=== PATIENT | female | born 1950 | race Caucasian/White ===

== ENCOUNTER 2022-03-11 13:26 | Outpatient (CLI) | payer MEDICARE, SELFPAY ==
--- NOTE | 2022-03-11 13:40 | CRLHL7_ITS ---
For Patients: As a result of the Century Cures Act, medical imaging exams and procedure reports are released immediately into your electronic medical record. You may view this report before your referring provider. If you have questions, please contact your health care provider. BILATERAL SCREENING MAMMOGRAM WITH COMPUTER-AIDED DETECTION TECHNIQUE: CC and MLO views were obtained. These mammographic images have been obtained using full-field digital technique. These mammographic images were interpreted with the benefit of computer-aided detection. COMPARISON FILM: 10/31/20; 07/20/19; 11/03/17 FINDINGS: The breasts are extremely dense, which lowers the sensitivity of mammography IMPRESSION: There is no radiographic evidence for malignancy. ASSESSMENT: BI-RADS Category 1: Negative RECOMMENDATION: Routine screening mammogram in 1 year. A lay language report of this examination will be provided to the patient. Reynaldo Fuchs M.D. Diagnostic/Musculoskeletal Radiologist [email or web address] Transcribed: 2:44 p.m. PT/Dictated by: Reynaldo Fuchs MD @ 03/12/2022 9:52:00 AM (Electronically Signed)
== END 2022-03-11 13:27 | disposition home or self-care (01) ==
LOC: MAMMO 13:31
PROVIDERS: PCP Family Medicine; Visit Provider Family Medicine
DX: Z12.31 Encounter for screening mammogram for malignant neoplasm of breast (principal); R92.2 Inconclusive mammogram
CPT/HCPCS: 77063; 77067

== ENCOUNTER 2022-04-08 07:23 | Outpatient (CLI) | payer MEDICARE, SELFPAY ==
[2022-04-08 09:46] LABS: Albumin* 4.5 g/dL (3.3-5.0); Chloride* 100 mmol/L (96-114); Potassium* 4.5 mmol/L (3.6-5.1); Sodium* 137 mmol/L (135-149)
[2022-04-08 09:48] LABS: Creatinine* 0.6 mg/dL (0.5-1.5); Estimated Glomerular Filt Rate 97 ml/min
[2022-04-08 09:49] LABS: Alanine Aminotransferase* 14 U/L (4-35); Alkaline Phosphatase* 104 U/L (40-150); Aspartate Amino Transferase* 20 U/L (12-35); Bilirubin Total* 0.6 mg/dL (0.1-1.5); Blood Urea Nitrogen* 9 mg/dL (7-30); Carbon Dioxide* 29 mmol/L (20-32); Glucose* 181 mg/dL (60-115); Total Protein* 7.1 g/dL (6.0-8.3)
[2022-04-08 09:50] LABS: Calcium* 9.7 mg/dL (8.4-10.6)
[2022-04-08 10:01] LABS: Creatinine Urine 83.9 mg/dL
[2022-04-08 10:05] LABS: Microalbumin Creatinine Ratio 10 mg/g (0-30); Microalbumin Urine < 1 mg/dL
== END 2022-04-08 07:24 | disposition home or self-care (01) ==
LOC: NFLDREF 07:23
PROVIDERS: PCP Family Medicine; Visit Provider Family Medicine
DX: Z00.00 Encounter for general adult medical examination without abnormal findings (principal); E11.9 Type 2 diabetes mellitus without complications; E78.5 Hyperlipidemia, unspecified; E55.9 Vitamin D deficiency, unspecified
CPT/HCPCS: 80053; 82043; 82570

== ENCOUNTER 2022-04-24 13:11 | Outpatient (CLI) | payer MEDICARE, SELFPAY ==
--- NOTE | 2022-04-24 13:30 | XR_ITS ---
Patient: JUAN JOSE HOPKINS Facility:?[facility] Patient ID:?[id number] Site Patient ID:?[id number]. Site :?[id number] Study:?DEXA-Spine DEXA SPINE/HIPS-04/25/2022 8:06:40 AM Ordering Physician:SHIKHA Final Report: DXA BONE MINERAL DENSITY STUDY Current height (in): 66.0. Weight (lb): 167.0. Menopause age: 47. Ethnicity: White. Reason for exam: Screening. 1. Have you had a previous hip or vertebral fracture? No. 2. Have you had any fractures during your adult life which did not result from significant trauma (e.g., auto accident)? No. 3. Did either of your parents have a hip fracture? No. 4. Do you smoke? No. 5. Have you ever taken Glucocorticoids? No. 6. Do you have rheumatoid arthritis? No. 7. Do you have secondary osteoporosis? No. 8. Do you drink 3 or more alcoholic drinks per day? No. 9. Are you being treated for osteoporosis? No. 10. Have you ever taken any of the following medications: Actonel, Evista, Fosamax, Miacalcin, Reclast, Boniva, Forteo, HRT (i.e. estrogen/hormone therapy), Protelos, Prolia, Vitamin D, Calcium, other ? please specify. ANSWER: Yes, vitamin D. 11. Do you have any of the following medical conditions: Anorexia or bulimia, asthma or emphysema, end stage renal disease, hyperparathyroidism, any seizure disorders, cancer, inflammatory bowel diseases, hysterectomy, other ? please specify. ANSWER: No. 12. What was your maximum height (inches)? 66. 13. Do you perform weight bearing exercise regularly? No. 14. Do you regularly consume dairy products? No. 15. Do you drink caffeinated beverages? Yes. If female: 16. At what age did your period start? 16. 17. Are you premenopausal? No. 18. How many full term pregnancies have you had? 4. 19. Have you ever missed your period for more than 6 months in a row (not including or menopause)? No. TECHNIQUE: Bone mineral density study was performed using the VISEO. FINDINGS: The results of the study expressed as bone mineral density (BMD) are as follows: Lumbar spine L1 to L4: BMD: 0.994 g/cm2. T-score: -0.5. Z-score: 1.7. Neck Left: BMD: 0.786 g/cm2. T-score: -0.6. Z-score: 1.3. Right: BMD: 0.795 g/cm2. T-score: -0.5. Z-score: 1.4. Total Left: BMD: 0.945 g/cm2. T-score: 0.0. Z-score: 1.6. Right: BMD: 0.957 g/cm2. T-score: 0.1. Z-score: 1.7. IMPRESSION: Normal bone density. *Comparison exams done prior to 12/2019 were performed on different unit, [employer]. COMPARISON: Compared with scan of 04/11/2013, the bone mineral density has decreased by 6.1 percent at the spine and decreased by 1.1 percent at the hip. Paul Sims M.D. Diagnostic Radiologist [email or web address] DSM/lesliew: D& Transcribed: 9:18 a.m. DW/Dictated by: Paul Sims MD @ 04/25/2022 8:19:00 AM Signed by:?Paul Sims MD @04/25/2022 10:32:31 AM (Electronic Signature)
== END 2022-04-24 13:12 | disposition home or self-care (01) ==
LOC: RAD 13:11
PROVIDERS: PCP Family Medicine; Visit Provider Family Medicine
DX: Z13.820 Encounter for screening for osteoporosis (principal); Z78.0 Asymptomatic menopausal state
CPT/HCPCS: 77080

== ENCOUNTER 2022-10-06 07:32 | Outpatient (CLI) | payer MEDICARE, SELFPAY | END 2022-10-06 07:33 | disposition home or self-care (01) | LOC: NFLDREF 11:40 | PROVIDERS: PCP Family Medicine; Referring Provider Family Medicine; Visit Provider Family Medicine | DX: E53.8 Deficiency of other specified B group vitamins (principal); E78.5 Hyperlipidemia, unspecified; E11.9 Type 2 diabetes mellitus without complications; E55.9 Vitamin D deficiency, unspecified | CPT/HCPCS: 80053; 80061; 82306; 82607 ==

== ENCOUNTER 2023-04-27 08:41 | Outpatient (CLI) | payer MEDICARE, SELFPAY | END 2023-04-27 08:42 | disposition home or self-care (01) | LOC: NFLDREF 04-30 06:54 | PROVIDERS: PCP Family Medicine; Referring Provider Family Medicine; Visit Provider Family Medicine | DX: Z00.00 Encounter for general adult medical examination without abnormal findings (principal); E11.9 Type 2 diabetes mellitus without complications; E78.5 Hyperlipidemia, unspecified; E53.8 Deficiency of other specified B group vitamins; E55.9 Vitamin D deficiency, unspecified | CPT/HCPCS: 80053; 80061; 82043; 82570 ==

== ENCOUNTER 2023-07-23 13:08 | Outpatient (CLI) | payer MEDICARE, SELFPAY ==
--- OUTSIDE RECORDS SUMMARY | 2023-07-23 13:10 | XMS_ITS | Clinical Summary ---
Author Name Unknown Organization [facility] Address [place], [place] [address] Care Team Providers Care X Ray Equipment Tester Name Role Phone Radha Helton RN Unavailable [phone] Marguerite James MD Primary Care Provider + Allergies No known active allergies Medications Medication Sig Dispensed Refills Start Date End Date Status metFORMIN (GLUCOPHAGE XR) 500 mg Extended-Release tablet 0 12/29/2017 Active rosuvastatin (CRESTOR) 5 mg tablet 0 12/29/2017 Act allen cholecalciferol (VITAMIN D3) 1,000 unit capsule Take 1,000 Units by mouth. 0 Active DUREZOL 0.05 % ophthalmic emulsion 0 12/29/2017 Activ e ketorolac 0.5 % ophthalmic (ACULAR) solution 0 12/29/2017 Active ciclopirox solution (LOPROX) 8 % solutionIndications:O nychomycosis Apply topically to affected area(s) at bedtime. 6.6 mL 10 03/31/2023 Active Active Problems Problem Noted Date Diagnosed Date Other chest pain 03/18/2018 Malignant melanoma of skin of trunk, except scro aurora 05/17/2013 Social History Tobacco Use Types Packs/Day Years Used Date Smoking Tobacco: Never Smokeless Tobacco: Never Alcohol Use Standard Drinks/Week Comments Yes 2 (1 standard drink = 0.6 oz pur e alcohol) Sex and Gender Information Value Date Recorded Sex Assigned at Not on file Gender Identity Not on file Sexual Orientation Not on file Obstetrics History Last Filed Vital Signs Vital Sign Reading Time Taken Comments Blood Pressure 135/84 06/07/2018 10:37 AM WEB COMMUNICATIONS SPECIALIST Pulse 74 06/07/2018 10:37 AM WEB COMMUNICATIONS SPECIALIST Temperature 36.8 ??C (98.2 ??F) 06/07/2018 10:[address] Respiratory Rate 16 06/07/2018 10:37 AM WEB COMMUNICATIONS SPECIALIST Oxygen Saturation 98% 06/07/2018 10:37 AM WEB COMMUNICATIONS SPECIALIST Inhaled Oxygen Concentration - - Weight 76.2 kg (168 lb) 03/18/2018 7:57 AM CDT Height 167.6 cm (5' 6) 03/18/2018 7:57 AM CDT Body Mass Index 27.12 03/18/2018 7:57 AM CDT Plan of Treatment Health Maintenance Due Date Last Done Comments Tdap 1962 Depression screening for age 12+ 1963 Hepatitis C screening for age 18-79 1969 Tetanus booster 1971 Colonoscopy through age 75 1996 Lipids for age 45-75 1996 Mammogram for age 45-75 1996 Zoster (shingles) series for age 50+ (1 of 2) 2001 DEXA/DXA scan for age 65+ 2016 Medicare Wellness for age 65+ 2016 Pneumococcal series for age 65+ (1 of 1 - PCV) 2016 BMI (ht and wt on same day) for age 18+ 03/18/2019 03/18/2018 COVID-19 vaccine series (2022-24 season) 2023 04/17/2022, 11/25/2021, 05/27/2021 Influenza for age 65+ 03/13/2023 Advance Directives Latest Code Status on File Code Status Date Activated Date Inactivated Comments Full Code 05/17/2013 11:50 AM 05/18/2013 2:27 AM Care Teams X Ray Equipment Tester Relationship Specialty Start Date End Date Marguerite James MD [address] [place] [address] PCP - General Family Practice 03/17/18 Radha Helton, VARUN [address] [facility] [address] [place], [place] [id number] Sql Data Architect Registered Nurse 05/17/13
--- OUTSIDE RECORDS SUMMARY | 2023-07-23 13:10 | XMS_ITS | Clinical Summary ---
Author Name Unknown Organization [facility] Address [address] [place] [address] Care Team Providers Care Lighting Technician Name Role Phone Unavailable Primary Care Provider Unavailabl e Source Comments Patient records contain information from all sites at [facility]. For routine questions regarding patient records, call [phone] during business hours, M-F 8:00 AM - 5:00 PM Central Time. Record requests for emergency care only can be directed to [phone] at any time.[facility] Allergies No known active allergies Medications Medication Sig Dispensed Refills Start Date End Date Status cholecalciferol (VITAMIN D3) 1,000 Unit capsule Take 1,000 Units by mouth. 0 Active metFORMIN XR (GLUCOPHAGE-XR) 500 mg 24 hr tablet Take 1,000 mg by mouth daily. Takes 4 tablets, 2 in the AM and 2 in the PM 3 12/29/2017 Active rosuvastatin (CRESTOR) 5 mg tablet daily. 0 12/29/2017 Active CONTOUR NEXT TEST STRIPS strips TEST BLOOD GLUCOSE TWICE DAILY 0 12/21/2018 Active timolol (TIMOPTIC) 0.5 % ophthalmic solution Administer 1 drop into both eyes 2 (two) times a day. 0 05/23/2020 Active brimonidine (ALPHAGAN P) 0.15 % ophthalmic solution Administer 1 drop into both eyes 2 (two) times a day. 0 05/23/2020 Active cyanocobalamin (VITAMIN B12) 1,000 mcg tablet Take 1,000 mcg by mouth every other day. 0 04/01/2020 Active COQ10, UBIQUINOL, ORAL Take 400 mg by mouth. 0 Active Encounters Date Type Department Care Team Description 05/18/2023 8:15 AM RECEIVING CLERK Office Visit Department of Dermatology in [address] [place] [address] Barbi Gibbons M.D. Nevi Multiple (Primary Dx); Keratosis Seborrheic; Melanoma Personal History Discharge Disposition: Home or Self Care from Last 3 Months Social History Tobacco Use Types Packs/Day Years Used Date Smoking Tobacco: Never Smokeless Tobacco: Never Nutrition Answer Date Recorded Nutrition: EVOO Fat Source Unknown 09/17 Nutrition: Servings of Fruits/Vegetables per Day Not on file 09/17/2020 Dental Answer Date Recorded Dental: Regular Dentist Unknown 09/19/19 21 Sex and Gender Information Value Date Recorded Sex Assigned at Not on file Gender Identity Not on file Sexual Orientation Not on file Plan of Treatment Health Maintenance Due Date Last Done Comments Bone Density Scan (Osteoporo sis Screen) 1950 CT Colonography 1950 Cologuard 1950 Colonoscopy 1950 Colorectal Cancer Screening 1950 FIT 1950 Hepatitis C Screening 1950 Mammogram 1950 Fasting Glucose for Diabetes Screening 03/16/2021 03/16/2018 DTaP,Tdap,and Td Vaccines (4 - Td or Tdap) 04/01/2022 04/01/2012, 03/21/2012, 09/13/2010 Depression Screening (Annual PHQ-2) 07/13/2022 Fall Risk Screen (Annual) 07/13/2022 Pneumococcal vaccine (65+ years) Completed 10/14/19 19, 10/08/2017 Zoster Vaccines Completed 03/27/2019, 11/10, 09/27/2015 COVID-19 Vaccine Completed 04/18/2023, 12/2021, 11/25/2021, Additional history exists Influenza Vaccine Completed 04/18/2023, , 05/02/2021, Additional history exists
--- OUTSIDE RECORDS SUMMARY | 2023-07-23 13:10 | XMS_ITS | Encounter Summary ---
Author Name Unknown Organization [facility] Address [address] [place] [address] Care Team Providers Care Vascular Surgery Physician Name Role Phone Unavailable Primary Care Provider Unavailabl e Reason for Referral * Outpatient (Routine) - Closed Specialty Diagnoses / Procedures Referred By Contac t Referred To Contact Dermatology Barbi Gibbons M.D. [address] [place] [address] [facility] Referral ID Status Reason Start Date Expiration Date Visits Re quested Visits Authorized [id number] Closed 10/16/2022 10/15/2025 1 1 Scheduling Instructions Skin check at [facility] in 6 months Reason for Visit * Outpatient (Routine) - Closed Specialty Diagnoses / Procedures Referred By Contac t Referred To Contact Dermatology Barbi Gibbons M.D. [address] [place] [address] [facility] Referral ID Status Reason Start Date Expiration Date Visits Re quested Visits Authorized [id number] Closed 04/10/2022 04/09/2025 1 1 Encounter Details Date Type Department Care Team (Late st Contact Info) Description 10/16/2022 12:45 PM CDT Office Visit Department of Dermatology in [place], [place] [address] [place] [phone] Barbi Gibbons M.D. [address] [place] [address] Nevi Multiple (Primary Dx); Keratosis Seborrheic; Melanoma Personal History Social History Tobacco Use Types Packs/Day Years [...] on file Sexual Orientation Not on file documented as of this encounter Progress Notes * Barbi Gibbons M.D. - 10/16/2022 12:45 PM CDT SUBJECTIVE CHIEF COMPLAINT / REASON FOR VISIT Melanoma recheck HISTORY OF PRESENT ILLNESS Irene Chance is a pleasant 72 y.o. female who presents for melanoma recheck. The patient was last seen by me in Dermatology clinic on 04/10/22. 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 She denies a personal history of non-melanoma skin cancer or family history for melanoma. She uses sunscreen. She denies any new or changing lesions today. She denies any fever, night sweats or unexpected weight loss. MEDICAL HISTORY 1. Upper central back: History of malignant melanoma, Jean-Paul level III, Breslow thickness 0.6 mm, 0 mitoses, 0 ulceration, status post wide local excision with subsequent negative lymph node biopsies done elsewhere in May 2013 2. Negative for non-melanoma skin cancer FAMILY HISTORY No history for melanoma OBJECTIVE PHYSICAL EXAMINATION General: Awake, alert, in no acute distress, and with appropriate affect. Eyes: No scleral injection or icterus. No eyelid abnormalities. Lymph: No lower extremity edema. No lymphadenopathy of head and neck, axilla, no popliteal or inguinal areas. No hepatosplenomegaly. Skin: I have examined the scalp, face, neck, chest, abdomen, back, bilateral upper extremities, andbilateral lower extremities. My nurse (Janette) served as a supervisor unloading for the entirety of the exam. Examination of the upper central back reveals no evidence for recurrence of melanoma. Examination of the face, trunk and extremities reveals multiple benign-appearing nevi, lentigines and seborrheic keratoses. Examination of the left upper cheek reveals a 1.4 x 1.4 cm brown patch with focal areas of slightlydarker pigmentation in the center compatible with lentigo. (5 scouting biopsies taken over 5 year period and al have shown benign solar lentigo) Examination of the right mid cheek reveals a 6 x 8 mm slightly verrucous papule with jagged borderscompatible with seborrheic keratosis. ASSESSMENT / PLAN #1 Upper central back: History of malignant melanoma, Jean-Paul level III, Breslow thickness 0.6 mm, 0 mitoses, 0 ulceration, status post wide local excision with subsequent negative lymph node biopsies done elsewhere in May 2013 A skin cancer screening was performed as described above. No clinical evidence of local recurrence of melanoma today. Due to the history of melanoma, there is an increased risk of additional melanomain the future. Recommended monthly self- skin examinations to evaluate for new, changing, symptomatic, or otherwise worrisome lesions. Signs and symptoms of melanoma and nonmelanoma skin cancer discussed. Photoprotection was recommended. Return to Dermatology in 6-12 months for a full skin exam or immediately if any new or changing lesions are noted. #2 Face, trunk and extremities: Multiple nevi and lentigines The ABCDE criteria for melanoma was reviewed with the patient. None of the patient's nevi reach theclinical threshold for biopsy. I recommend continued sun protection, using sunscreen with SPF 30 atleast, self-skin examinations, and observation. Should any of the patient's nevi change in size, color, texture, or shape or develop symptoms such as itching or bleeding, I recommend an immediate return visit for reassessment. Particularly, we will continue to clinically monitor the lesion(s) involving the left upper cheek noted today. Photographs taken today. Follow up in 6 months for a recheck of the stated lesion(s). #3 Face, trunk and extremities: Seborrheic keratosis The benign nature of the skin lesion(s) was discussed with the patient. No treatment is required. Irecommend continued observation. Should this lesion change in size, color, texture, or shape or develop symptoms such as itching or bleeding, I recommend an immediate return visit for reassessment. PATIENT EDUCATION: Ready to learn. No apparent learning barriers were identified. Learning preferences include listening. Explained diagnosis and treatment plan; patient/guardian of patient expressed understanding of the content. By signing my name below, I, Philip Duffy, attest that this documentation has been prepared under the direction and in the presence of Barbi Gibbons M.D. Electronically Signed: odin Martin. 10/16/2022. 12:49 PM CDT. IBarbi M.D., personally performed the services described in this documentation. All medical record entries made by the scribe were at my direction and in my presence. I have reviewed the chart and discharge instructions (if applicable) and agree that the record reflects my personal performance and is accurate and complete. Barbi Gibbons M.D. documented in this encounter Plan of Treatment Scheduled Referrals Name Type Priority Associated Diagnoses Order Schedule Dermatology office visit (clinic) Outpatient Referral Routine Expected: 04/17/2023 (Approximate), Expires: 01/16/2024 documented as of this encounter Visit Diagnoses Diagnosis Nevi Multiple- Primary Keratosis Seborrheic Melanoma Personal History documented in this encounter
--- OUTSIDE RECORDS SUMMARY | 2023-07-23 13:10 | XMS_ITS | Encounter Summary ---
Author Name Unknown Organization [facility] Address [address] [place] [address] Care Team Providers Care Slate Cutter Operator Name Role Phone Unavailable Primary Care Provider Unavailabl e Encounter Details Date Type Department Care Team (Late st Contact Info) Description 10/16/2022 1:05 PM CDT Ancillary Procedure Department of Dermatology Social History Tobacco Use Types Packs/Day Years [...] on file documented as of this encounter Plan of Treatment Not on file documented as of this encounter Procedures Procedure Name Priority Date/Time Associated Diagnosis Comments DERMATOLOGY IMAGE EXAM Routine 10/16/2022 1:03 PM CDT documented in this encounter Results * Cheek, left 11 13 25 27 37-Dermatology Image Exam (10/16/2022 1:03 PM CDT) 10/16/2022 1:01 PM CDT Narrative [facility] - 10/16/2022 1:03 PM CDT This order has been created and auto-finalized to support the import of images acquired without order. The clinical documentation to support these images can be found on the encounter that produced images. Provider Not In System IMG NON RAD IMAGI NG PROCEDURES [facility] NA documented in this encounter Visit Diagnoses Not on filedocumented in this encounter
--- OUTSIDE RECORDS SUMMARY | 2023-07-23 13:10 | XMS_ITS | Referral Summary ---
Author Name Unknown Organization [facility] Address [address] [place] [address] Care Team Providers Care Inside Sales Assistant Name Role Phone Unavailable Primary Care Provider Unavailabl e Source Comments Patient records contain information from all sites at [facility]. For routine questions regarding patient records, call [phone] during business hours, M-F 8:00 AM - 5:00 PM Central Time. Record requests for emergency care only can be directed to [phone] at any time.[facility] Encounters Date Type Department Care Team Description 05/18/2023 8:15 AM SUPERVISOR PAPER TESTING Office Visit Department of Dermatology in [address] [address] Barbi Gibbons M.D. Nevi Multiple (Primary Dx); Keratosis Seborrheic; Melanoma Personal History Discharge Disposition: Home or Self Care from Last 3 Months Allergies No known active allergies Medications Medication [...] Take 400 mg by mouth. 0 Active Social History Tobacco Use Types Packs/Day Years [...] Orientation Not on file Plan of Treatment Not on file Guarantor Name Account Type Relation to Patient Date of Phone Billing Address Irene Chance Personal/Family Self 1950 [id number] [place] [address]
--- OUTSIDE RECORDS SUMMARY | 2023-07-23 13:10 | XMS_ITS | Encounter Summary ---
Author Name Unknown Organization [facility] Address [address] [place] [address] Care Team Providers Care Splicing Machine Operator Automatic Name Role Phone Unavailable Primary Care Provider Unavailabl e Reason for Visit * Reason Comments Skin Check * Outpatient (Routine) - Closed Specialty Diagnoses / Procedures Referred By Cassandra ren Referred To Contact Dermatology Barbi Gibbons M.D. [address] [place] [phone] [employer]pi [employer] Referral ID Status Reason Start Date Expiration Date Visits Re quested Visits Authorized [id number] Closed 10/16/2022 10/15/2025 1 1 Encounter Details Date Type Department Care Team (Late st Contact Info) Description 05/18/2023 8:15 AM ENTERTAINMENT MANAGER Office Visit Department of Dermatology in [address] [phone] Barbi Gibbons M.D. [address] [place] [phone] Nevi Multiple (Primary Dx); Keratosis Seborrheic; Melanoma Personal History Discharge Disposition: Home or Self Care Social History Tobacco Use Types Packs/Day Years [...] Progress Notes * Barbi Gibbons M.D. - 05/18/2023 8:15 AM CST SUBJECTIVE CHIEF COMPLAINT / REASON FOR VISIT Melanoma recheck HISTORY OF PRESENT ILLNESS Irene Chance is a pleasant 72 y.o. female who presents for a melanoma recheck. The patient was last seen by me in Dermatology clinic on 10/16/22. She has a history of malignant melanoma involving the upper central back, Jean-Paul level III, Breslow thickness 0.6 mm, 0 mitoses, 0 ulceration, status post wide local excision with subsequent negative lymph node biopsies done elsewhere in May 2013.She denies a personal history of non-melanoma skin [...] No lymphadenopathy of head and neck, axilla, popliteal or inguinalareas. No hepatosplenomegaly. Skin: I have examined the scalp, face, neck, chest, abdomen, back, bilateral upper extremities, andbilateral lower extremities. My scribe (Fay) served as a compliance advisor for the entirety of the exam. Examination of the upper central back reveals no evidence for recurrence of melanoma. Examination of the face, trunk and extremities reveals multiple benign-appearing nevi, lentigines and seborrheic keratoses. Examination of the left upper cheek reveals a 1.5 x 1.4 cm brown patch with focal areas of hypopigmentation from previous biopsies and a second island of brown pigmentation just lateral at the 3 o'clock position, likely representing a lentigo vs flat seborrheic keratosis, favor lentigo (five scouting biopsies taken over five year period and all have shown benign solar lentigo). Examination today reveals no suspicious lesions for skin cancer. ASSESSMENT / PLAN #1 Upper central back: History of malignant melanoma, Jean-Paul level III, Breslow thickness 0.6 mm, 0 mitoses, 0 ulceration, status post wide local excision with subsequent negative lymph node biopsies done elsewhere in May 2013, no recurrence A skin cancer screening was performed as described above. No clinical evidence of local recurrence of melanoma today. Due to the history of melanoma, there is an increased risk of additional melanomain the future. Recommended monthly self- skin examinations to evaluate for new, changing, symptomatic, or otherwise worrisome lesions. Signs and symptoms of melanoma and non-melanoma skin cancer discussed. Photoprotection was recommended. Return to Dermatology in 6-12 months for a full skin exam or immediately if any new or changing lesions are noted. #2 Face, trunk and extremities: Multiple nevi and lentigines The ABCDE criteria for melanoma was reviewed with the patient. None of the patient's nevi reach theclinical threshold for biopsy. I recommend continued sun protection, self-skin examinations, and observation. Should any of the patient's nevi change in size, color, texture, or shape or develop symptoms such as itching or bleeding, I recommend an immediate return visit for reassessment. Particularly, we will continue to clinically monitor the lesion(s) involving the left upper cheek. Photographstaken previously. Follow up in 6 months for a [...] the content. By signing my name below, Fay Trent, attest that this documentation has been prepared underthe direction and in the presence of Barbi Gibbons M.D. Electronically Signed: odin Naik. 05/18/2023. 8:16 AM ENTERTAINMENT MANAGER. Barbi Trent M.D., personally performed the services described in this documentation. All medical record entries made by the scribe were at my direction and in my presence. I have reviewed the chart and discharge instructions (if applicable) and agree that the record reflects my personal performance and is accurate and complete. Barbi Gibbons M.D. Scribed for Barbi Gibbons M.D. by Fay Meneses on 05/18/2023, 8:22 AM ENTERTAINMENT MANAGER. RTAINMENT MANAGER documented in this encounter Plan of Treatment Not on file documented as of this encounter Visit Diagnoses Diagnosis Nevi Multiple- Primary Keratosis Seborrheic Melanoma Personal History documented in this encounter
--- OUTSIDE RECORDS SUMMARY | 2023-07-23 13:10 | XMS_ITS ---
Author Name Unknown Organization [facility] Address [address] [place] [address] Care Team Providers Care Asset Protection Assistant Name Role Phone Unavailable Unavailable Unavailable Surgery Details Not on file Complications Check Surgery Details section. Procedure Estimated Blood Loss Check Surgery Details section. Procedure Findings Check Surgery Details section. Procedure Specimens Taken Check Surgery Details section.
--- OUTSIDE RECORDS SUMMARY | 2023-07-23 13:10 | XMS_ITS | Encounter Summary ---
Author Name Unknown Organization [facility] Address [address] [place] [id number] Care Team Providers Care First Cook Name Role Phone Unavailable Primary Care Provider Unavailabl e Reason for Visit * Reason Onset Date Comments Pre-visit Intake 10/13/2022 Encounter Details Date Type Department Care Team (Latest Contact Info) Description 10/13/2022 8:00 AM CDT Clinical Communication Virtual Review in [place], [place] [address] [place], [place] [id number] Pre-visit Intake Social History Tobacco Use Types Packs/Day Years [...] on file documented as of this encounter Miscellaneous Notes * Telephone Encounter - Shana Cope - 10/13/2022 8:10 AM CDT PRATIK DONE 10/13 JAR documented in this encounter Plan of Treatment Not on file documented as of this encounter Visit Diagnoses Not on filedocumented in this encounter
--- NOTE | 2023-07-23 13:20 | CRLHL7_ITS ---
For Patients: As a result of the Century Cures Act, medical imaging exams and procedure reports are released immediately into your electronic medical record. You may view this report before your referring provider. If you have questions, please contact your health care provider. BILATERAL SCREENING MAMMOGRAM WITH COMPUTER-AIDED DETECTION TECHNIQUE: CC and MLO views were obtained. These mammographic images have been obtained using full-field digital technique. These mammographic images were interpreted with the benefit of computer-aided detection. COMPARISON FILM: 03/11/22, 10/31/20, 07/20/19. FINDINGS: The breasts are extremely dense, which lowers the sensitivity of mammography IMPRESSION: There is no radiographic evidence for malignancy. ASSESSMENT: BI-RADS Category 2: Benign RECOMMENDATION: Routine screening mammogram in 1 year. A lay language report of this examination will be provided to the patient. Paul Sims M.D. Diagnostic Radiologist [email or web address] Transcribed: 4:23 p.[email or web address] [email or web address]/Dictated by: Paul Sims MD @ 07/29/2023 1:09:00 PM (Electronically Signed)
== END 2023-07-23 13:09 | disposition home or self-care (01) ==
LOC: MAMMO 13:08
PROVIDERS: PCP Family Medicine; Visit Provider Family Medicine
DX: Z12.31 Encounter for screening mammogram for malignant neoplasm of breast (principal); R92.2 Inconclusive mammogram
CPT/HCPCS: 77067

== ENCOUNTER 2024-03-09 08:58 | Outpatient (RCR) | payer MEDICARE, SELFPAY ==
--- NOTE | 2024-03-09 15:43 | PT.OPE ---
PT [facility] Outpatient Eval PT [facility] Outpatient Eval Start: 03/09/24 07:17 Freq: Status: Active Protocol: Document 03/09/24 15:41 CJT (Rec: 03/09/24 15:42 CJT [email or web address]) E-signed By Basilio Harman PT Physical Therapy Outpatient Evaluation Insurance Information Recert Due Date 06/07/24 Insurance Name Medicare B Medical Diagnosis Vertigo Treating Diagnosis BPPV, L ear Referring Pako Navarro Subjective Preferred Name Irene Mosquera Pt presents with complaints of dizziness. Looking up and down, reaching with her arms seems to trigger dizziness. Dizziness last approx 10-15 seconds with some residual symptoms noted. Symptoms started 1 week ago. Had been given printout of instructions for R Tatiana. Pt describes onset of dizziness in each phase of the maneuver. Has been doing the R Tatiana since Thursday. Pt denies LOB and falls. As long as she doesn't look down while walking she is fine. Pt sleeps on either side at night. Has been sleeping on L last few nights and this seems to help. Has had some nausea but denies vomiting. This is pts first experience with vertigo. Pt also notes that she was on a plane about 10 days ago and has had some fullness in her R ear since. Date of Last Physician Visit 03/04/24 Current Work Status Retired Precautions Treatment Precautions/Contraindications Active Problems (Updated 04/29 @ 07:45 by Marguerite James MD) Vitritis (Chronic) H43.89 - Other disorders of vitreous body (ICD-10) Low vitamin B12 level ( Resolved 2019) E53.8 - Deficiency of other specified B group vitamins ( ICD-10) History of bone density study (Chronic ~04/2022) normal bone density Z92.89 - Personal history of other medical treatment (ICD- 10) Chronic leukopenia (Chronic ~ 2018) peripheral smear March 2021: significance of leukopenia doubtful Normal morphology Borderline leukopenia, borderline lymphopenia, borderline microcytic anemia D72.819 - Decreased white blood cell count, unspecified (ICD-10) 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) H35.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 - Cystoid macular degeneration, right eye (ICD- 10) History of herpes zoster keratoconjunctivitis (Acute 2012) R eye Z86.69 - Personal history of other diseases of the nervous system and sense organs (ICD- 10) Malignant melanoma (Chronic 2012) see it application support analyst Dr Gibbons yearly C43.9 - Malignant melanoma of skin, unspecified (ICD-10) Type 2 diabetes mellitus ( Chronic 2015) E11.9 - Type 2 diabetes mellitus without complications (ICD-10) Vitamin D deficiency (Chronic 05/13/13) E55.9 - Vitamin D deficiency, unspecified (ICD-10) Dyslipidemia (Acute) E78.5 - Hyperlipidemia, unspecified (ICD-10) Medical History (Updated 04/29 @ 07:45 by Marguerite James MD) Health care directive on file Z78.9 - Other specified health status (ICD-10) History of bone density study (~04/2022) Z92.89 - Personal history of other medical treatment (ICD- 10) Chronic leukopenia (~2018) D72.819 - Decreased white blood cell count, unspecified (ICD-10) Vitritis H43.89 - Other disorders of vitreous body (ICD-10) Type 2 diabetes mellitus (2015 ) E11.9 - Type 2 diabetes mellitus without complications (ICD-10) Tubular adenoma of colon (2010 ) D12.6 - Benign neoplasm of colon, unspecified (ICD-10) No retinopathy on exam () Z01.00 - Encounter for examination of eyes and vision without abnormal findings ( ICD-10) Malignant melanoma (2012) C43.9 - Malignant melanoma of skin, unspecified (ICD-10) Low vitamin B12 level (2019) E53.8 - Deficiency of other specified B group vitamins ( ICD-10) History of herpes zoster keratoconjunctivitis (2012) Z86.69 - Personal history of other diseases of the nervous system and sense organs (ICD- 10) Cystoid macular edema of right eye (03/2017) H35.351 - Cystoid macular degeneration, right eye (ICD- 10) Therapy Limitations/Systems Review Not Limited Objective Other/Pertinent Objective Cervical ROM Extension - 46 Flexion - 37 R/L Sidebend - 30/30 R/L Rotation - 68/75 Oculomotor Testing Gaze Stabilization: negative Smooth Pursuits: negative Saccades: negative Convergence: negative Head Shake: negative Head Thrust: negative VOR: negative VOR Cancelation: negative Positional Testing -R Lamar-Hallpike: negative x 2 -L Lamar-Hallpike: positive for minimal dizziness; nystagmus lasting approx 20-25 seconds -R Roll: DNT -L Roll: DNT Modified Romberg -Eyes open, firm surface: normal sway -Eyes closed, firm surface: normal sway -Eyes open, foam surface: normal sway -Eyes closed, foam surface: excessive sway and LOB x 1 Assessment Assessment/Impression Irene is a very pleasant 73 year old female who presents to our clinic for evaluation and treatment of dizziness. Based on the above history and exam, her symptoms are most suspicious and consistent with a peripheral process, with highest suspicion for BPPV. Other etiologies for dizziness were considered, but felt to be less likely at this time. Each of their episodes of dizziness are distinctly triggered by changes in body position/head movement, and dizziness fatigues/resolves after a few seconds. The pt does have a positive Lamar- Hallpike maneuver towards the Left side. Upon viewing this, an Tatiana maneuver was appropriately performed and pt noted Mild resolution in symptoms following. Today I was unable to elicit dizziness and nystagmus with R Lamar- Hallpike testing although pt did note that her R side seemed to be causing her issues. I have asked Irene to attempt the R Tatiana at home for treatment. If she does not experience dizziness in the first position in the maneuver, she should sit back up and attempt the same maneuver for the L side as this was her symptomatic side in our clinic. We will assist Irene in scheduling several more treatment sessions weekly and utilize these as needed. Pt may cancel future appointments if she is symptom free. Recommend continued PT services to address deficits and return pt to highest level of function. Primary Functional Limitations bed mobility, walking Plan of Care Rehabilitation Potential Good Physical Therapy Goals STG - To be completed in 2-3 weeks: 1. Pt will report reduction in dizziness frequency and intensity so that they may return to normal bed mobility with minimal bouts of dizziness. LTG - To be completed in 4 weeks: 1. Pt will report ability to roll over in bed to either side without onset of dizziness so that they may roll over in bed without waking. 2. Pt will score 120/120 on mCTSIB as indication of improved vestibular component of balance to reduce risk of falls. 3. Pt will report absence of dizziness with all positional testing so that they may perform all activities with similar head/neck positions including rolling over in bed, washing hair in shower without onset of dizziness. Treatment Plan/Direct Interventions Canalith Repositioning,Joint Mobilization,Manual Therapy, Neuromuscular Re-ed,Self-Care/ Home Management,Therapeutic Exercises Frequency/Duration 1/week for 4 weeks Patient Will Be Discharged From Therapy Completion of LTG(s),Skills Plateau,Independent w/HEP, Independently Progressing Evaluation Billing Untimed Code Treatment Minutes 50 PT Eval No Charge No Complexity Low Certification Information Initial Certification Date 03/09/24 Ending Certification Date 06/07/24 Provider Signature Required Yes Provider Signature Shows Agreement With POC & Medical Necessity Physician NPI Number Write NPI# Here Physician Comment/Change : Physician Signature & Date Requested Please Sign/Date Here
== END 2024-07-07 23:59 | disposition home or self-care (01) ==
PROVIDERS: PCP Family Medicine; Visit Provider Family Medicine
DX: H81.12 Benign paroxysmal vertigo, left ear (principal); Z51.89 Encounter for other specified aftercare
CPT/HCPCS: 97161

== ENCOUNTER 2024-04-29 07:34 | Outpatient (CLI) | payer MEDICARE, SELFPAY ==
--- OUTSIDE RECORDS SUMMARY | 2024-05-03 13:17 | XMS_ITS | Clinical Summary ---
Author Organization [facility] Address [place], [place] [address] Care Team Providers Care Steak Tenderizer Machine Name Role Phone Marguerite James MD Primary Care Provider + Allergies No known active allergies Medications Medication Sig Dispensed Refills Start Date End Date Status metFORMIN (GLUCOPHAGE XR) 500 mg Extended-Release tablet 12/29/2017 Active rosuvastatin (CRESTOR) 5 mg tablet 12/29/2017 Act allen cholecalciferol (VITAMIN D3) 1,000 unit capsule Take 1,000 Units by mouth. Active DUREZOL 0.05 % ophthalmic emulsion 0 [...] Comments Blood Pressure 135/84 06/07/2018 10:37 AM CAUSTIC MIXER Pulse 74 06/07/2018 10:37 AM CAUSTIC MIXER Temperature 36.8 ??C (98.2 ??F) 06/07/2018 10:[address] Respiratory Rate 16 06/07/2018 10:37 AM CAUSTIC MIXER Oxygen Saturation 98% 06/07/2018 10:37 AM CAUSTIC MIXER Inhaled Oxygen Concentration - - Weight 76.2 [...] age 18+ 03/18/2019 03/18/2018 COVID-19 vaccine series (2023- season) 2024 04/17/2022, 11/25/2021, 05/27/2021 Influenza for age 65+ 03/13/2024 Advance Directives * Full Code (Latest Code Status on File) Date Activated Date Inactivated Comments 05/17/2013 11:50 AM 05/18/2013 2:27 AM Care Teams Steak Tenderizer Machine Relationship Specialty Start Date End Date Marguerite James MD [address] [place] [address] PCP - General Family Practice 03/17/18
--- OUTSIDE RECORDS SUMMARY | 2024-05-03 13:17 | XMS_ITS | Referral Summary ---
Author Organization [facility] Address [address] [place] [address] Care Team Providers Care Asw/Asuw Tactical Air Controller Name Role Phone Unavailable Primary Care Provider Unavailabl e Source Comments Patient records contain information from all sites at [facility]. For routine questions regarding patient records, call [phone] during business hours, M-F 8:00 AM - 5:00 PM Central Time. Record requests for emergency care only can be directed to [phone] at any time.[facility] Allergies No known active allergies Medications cholecalciferol (VITAMIN D3) 1,000 Unit capsule Take 1,000 Units by mouth. Active metFORMIN XR (GLUCOPHAGE-XR) 500 mg 24 hr tablet Take 1,000 mg by mouth daily. Takes 4 tablets, 2 in the AM and 2 in the PM 3 8 Active rosuvastatin (CRESTOR) 5 mg tablet daily. 0 8 Active CONTOUR NEXT TEST STRIPS strips TEST BLOOD GLUCOSE TWICE DAILY 0 9 Active timolol (TIMOPTIC) 0.5 % ophthalmic solution Administer 1 drop into both eyes 2 (two) times a day. 0 Active brimonidine (ALPHAGAN P) 0.15 % ophthalmic solution Administer 1 drop into both eyes 2 (two) times a day. 0 Active cyanocobalamin (VITAMIN B12) 1,000 mcg tablet Take 1,000 mcg by mouth every other day. 0 Active COQ10, UBIQUINOL, ORAL Take 400 mg by mouth. Active Social History Tobacco Use Types Packs/Day Years Used Date Smoking Tobacco: Never Smokeless Tobacco: Never Nutrition Answer Date Recorded Nutrition: EVOO Fat Source 13 03/27 Nutrition: Servings of Fruits/Vegetables per Day Not on file 03/27/2020 Dental Answer Date Recorded Dental: Regular Dentist Unknown 09/19/19 21 Comments Unknown Sex and Gender Information Value Date Recorded Sex Assigned at Not on file Legal Sex Female 11:20 PM CUSTOMER TRAINER Gender Identity Not on file Sexual Orientation Not on file Plan of Treatment Not on file Insurance [facility]
--- OUTSIDE RECORDS SUMMARY | 2024-05-03 13:17 | XMS_ITS | Clinical Summary ---
Author Organization [facility] Address [address] [place] [address] Care Team Providers Care Perinatal Director Name Role Phone Unavailable Primary Care Provider Unavailabl e Source Comments Patient records contain information from all sites at [facility]. For routine questions regarding patient records, call [phone] during business hours, M-F 8:00 AM - 5:00 PM Central Time. Record requests for emergency care only can be directed to [phone] at any time.[facility] Allergies No known active allergies Medications [...] on file Legal Sex Female 11:20 PM FINISHING AREA SUPERVISOR Gender Identity Not on file Sexual Orientation [...] 04/01/2012, 03/21/2012, 09/13/2010 Depression Screening (Annual PHQ-2) 07/13/2023 Fall Risk Screen (Annual) 07/13/2023 COVID-19 Vaccine (7 2023-2 5 season) 2024 04/18/2023, 04/17/2022, 11/25/2021, Additional history exists Influenza Vaccine (#1) 2024 , 04/20/2022, 05/02/2021, Additional history exists Pneumococcal vaccine (65+ years) Completed 10/14/19 19, 10/08/2017 Zoster Vaccines Completed 03/27/2019, 11/10, 09/27/[address] [facility] [place] [phone]
--- OUTSIDE RECORDS SUMMARY | 2024-05-03 13:17 | XMS_ITS ---
Author Organization [facility] Address [address] [place] [address] Care Team Providers Care Honing Machine Operator Semiautomatic Name Role Phone Unavailable Unavailable Unavailable Surgery Details Not on file Complications Check Surgery Details section. Procedure Estimated Blood Loss Check Surgery Details section. Procedure Findings Check Surgery Details section. Procedure Specimens Taken Check Surgery Details section.
== END 2024-04-29 07:35 | disposition home or self-care (01) ==
LOC: NFLDREF 05-03 13:15
PROVIDERS: PCP Family Medicine; Referring Provider Family Medicine; Visit Provider Family Medicine
DX: Z00.00 Encounter for general adult medical examination without abnormal findings (principal); E53.8 Deficiency of other specified B group vitamins; E55.9 Vitamin D deficiency, unspecified; E78.5 Hyperlipidemia, unspecified; E11.9 Type 2 diabetes mellitus without complications; R53.83 Other fatigue
CPT/HCPCS: 80053; 80061; 82043; 82306; 82570; 82607

== ENCOUNTER 2024-08-16 14:51 | Outpatient (CLI) | payer MEDICARE, SELFPAY ==
--- NOTE | 2024-08-16 15:00 | CRLHL7_ITS ---
For Patients: As a result of the Century Cures Act, medical imaging exams and procedure reports are released immediately into your electronic medical record. You may view this report before your referring provider. If you have questions, please contact your health care provider. BILATERAL SCREENING MAMMOGRAM WITH COMPUTER-AIDED DETECTION TECHNIQUE: CC and MLO views were obtained. These mammographic images have been obtained using full-field digital technique. These mammographic images were interpreted with the benefit of computer-aided detection. COMPARISON FILM: 07/23/23, 03/11/24, 10/31/20. FINDINGS: The breasts are heterogeneously dense, which may obscure small masses IMPRESSION: There is no radiographic evidence for malignancy. ASSESSMENT: BI-RADS Category 2: Benign RECOMMENDATION: Routine screening mammogram in 1 year. A lay language report of this examination will be provided to the patient. Paul Sims M.D. Diagnostic Radiologist [email or web address] Transcribed: 2:53 p.[email or web address] [email or web address]/Dictated by: Paul Sims MD @ 08/17/2024 9:27:00 AM (Electronically Signed)
== END 2024-08-16 14:52 | disposition home or self-care (01) ==
PROVIDERS: PCP Family Medicine; Visit Provider Family Medicine
DX: Z12.31 Encounter for screening mammogram for malignant neoplasm of breast (principal); R92.333 Mammographic heterogeneous density, bilateral breasts
CPT/HCPCS: 77067

== ENCOUNTER 2025-02-13 06:24 | Outpatient (CLI) | payer MEDICARE, SELFPAY ==
--- NOTE | 2025-02-13 08:31 | P.ANES_ITS ---
Anesthesia Charges Start Date/Time Anesthesia Start Date: 02/13/25 Anesthesia Start Time: 07:18 Stop Date/Time Anesthesia Stop Date: 02/13/25 Anesthesia Stop Time: 08:30 Summary Extremes of Age - Over 70 or under 1: LOADER DEMOLDER Coding CPT Codes CPT Codes: DUY LWR INTST NDSC NOS - 11349 ([id number]) P2 - PATIENT W/MILD SYST DISEASE, QX - LOADER DEMOLDER SVC W/ MD MED DIRECTION, QK - SEED CORE OPERATOR 2-4 CNCRNT ANES PROC Additional Codes: Summary - Extremes of Age - Over 70 or under 1: LOADER DEMOLDER ([id number])
--- NOTE | 2025-02-13 08:31 | W.ANESCHARGE ---
Anesthesia Charges Start Date/Time Anesthesia Start Date: 02/13/25 Anesthesia Start Time: 07:18 Stop Date/Time Anesthesia Stop Date: 02/13/25 Anesthesia Stop Time: 08:30 Summary Extremes of Age - Over 70 or under 1: ADVICE CLERK Coding CPT Codes CPT Codes: DUY LWR INTST NDSC NOS - 47472 ([id number]) P2 - PATIENT W/MILD SYST DISEASE, QX - ADVICE CLERK SVC W/ MD MED DIRECTION, QK - WEAVING INSTRUCTOR 2-4 CNCRNT ANES PROC Additional Codes: Summary - Extremes of Age - Over 70 or under 1: ADVICE CLERK ([id number])
--- NOTE | 2025-02-13 08:56 | P.ANES_ITS ---
Anesthesia Charges Start Date/Time Anesthesia Start Date: 02/13/25 Anesthesia Start Time: 07:18 Stop Date/Time Anesthesia Stop Date: 02/13/25 Anesthesia Stop Time: 08:30 Summary Extremes of Age - Over 70 or under 1: MDA Coding CPT Codes CPT Codes: ANES LWR INTST NDSC NOS - 76927 ([id number]) QK - LINUX SERVER ENGINEER 2-4 CNCRNT ANES PROC, QX - AGED OR DISABLED CARER SVC W/ MD MED DIRECTION, P2 - PATIENT W/MILD SYST DISEASE Additional Codes: Summary - Extremes of Age - Over 70 or under 1: LARS ([id number])
== END 2025-02-13 06:25 | disposition home or self-care (01) ==
LOC: OP CLINIC 06:26
PROVIDERS: PCP Family Medicine; Visit Provider Surgery
DX: Z12.11 Encounter for screening for malignant neoplasm of colon (principal); D12.2 Benign neoplasm of ascending colon; D12.3 Benign neoplasm of transverse colon; D12.5 Benign neoplasm of sigmoid colon; Z86.0100 Personal history of colon polyps, unspecified
CPT/HCPCS: 00811; 00812; 45385; 88305; 99100; J2704

== ENCOUNTER 2025-05-22 08:05 | Outpatient (CLI) | payer MEDICARE, SELFPAY | END 2025-05-22 08:06 | disposition home or self-care (01) | LOC: NFLDREF 05-25 10:48 | PROVIDERS: PCP Family Medicine; Referring Provider Family Medicine; Visit Provider Family Medicine | DX: E53.8 Deficiency of other specified B group vitamins (principal); E55.9 Vitamin D deficiency, unspecified; E78.5 Hyperlipidemia, unspecified; E11.9 Type 2 diabetes mellitus without complications | CPT/HCPCS: 80053; 80061; 82043; 82306; 82570; 82607 ==

== ENCOUNTER 2025-06-30 08:10 | Outpatient (CLI) | payer MEDICARE, SELFPAY | END 2025-06-30 08:11 | disposition home or self-care (01) | LOC: NFLDREF 07-07 06:40 | PROVIDERS: PCP Family Medicine; Referring Provider Family Medicine; Visit Provider Family Medicine | DX: I10 Essential (primary) hypertension (principal) | CPT/HCPCS: 80048 ==